=== PATIENT | female | born 1985 | race Two or more races ===

== ENCOUNTER → 2024-09-19 | Outpatient (CLI) | payer MEDICAID, SELFPAY ==
--- NOTE | 2024-09-19 08:00 | XR_ITS ---
Examination: CT abdomen and pelvis without contrast. Coronal 3-D reconstructions. Sagittal 2-D reconstructions. Date and time of exam:September 19, 2024 1007 hours INDICATIONS: Right lower quadrant abdominal pain beginning one year ago CTDI: vol (mGy): 7.06 DLP: (mGycm): 349 Technique: Axial images of the abdomen have been obtained, 3 mm slice thickness Intravenous contrast material has not been administered. Low dose protocols were performed. One or more of the following dose reduction techniques were used; automated exposure control, adjustment of the mA and/or KV according to patient size, use of iterative reconstruction technique. Findings: Diffuse fatty infiltration throughout the liver, no focal liver or splenic lesions No gallstones No pancreatic or adrenal mass. No renal or ureteral calculi, no hydronephrosis Aorta normal size 8 mm fat-containing a buckle hernia. Normal appendix No bowel obstruction No diverticulitis Partially retroverted uterus Intact urinary bladder IMPRESSION: Normal appendix No acute process in the abdomen or pelvis
[2024-09-19 09:05] LABS: HCG Qualitative,Urine Negative
== END | disposition home or self-care (01) ==
PROVIDERS: PCP Family Medicine; Referring Provider Radiology Diagnostic Radiology; Visit Provider Family Medicine
DX: R10.31 Right lower quadrant pain (principal); Z32.00 Encounter for pregnancy test, result unknown
CPT/HCPCS: 74176; 81025